=== PATIENT | male | born 1985 | race Two or more races ===

== ENCOUNTER 2019-01-31 10:14 | Emergency (ER) | payer SELFPAY ==
--- NOTE | 2019-01-31 11:08 | EDM.PDOC ---
ED HPI GENERAL MEDICAL PROBLEM - General Chief Complaint: Gastrointestinal Problem Stated Complaint: ABDOMINAL PAIN Time Seen by Provider: 01/31/19 10:39 Source of Information: Reports: Patient, RN Notes Reviewed - History of Present Illness INITIAL COMMENTS - FREE TEXT/NARRATIVE: 33-year-old male comes in with concern about upper mid chest discomfort he has had off and on for about a month and also left lower abdominal discomfort also off-and-on for about a month. States this all has been quite mild no nausea vomiting or change in appetite. He has had some mild intermittent constipation. He had an episode of rectal bleeding a month or 2 ago that stopped, no further bleeding and that also is of concern to him. His father at about age 55 of pancreatic cancer and that is his main worry, that he might have cancer. He did start omeprazole today and took his first dose just a few hours ago. No significant pain at this time. Left Abdominal Pain Score (Numeric/FACES): 1 - Related Data Allergies Allergy/AdvReac Type Severity Reaction Status Date / Time No Known Allergies Allergy Verified 01/31/19 10:20 Home Meds: Home Meds . [No Known Home Meds] 01/31/19 [History] Past Medical History - Past Health History Medical/Surgical History: Denies Medical/Surgical History Social & Family History - Tobacco Use Smoking Status *Q: Never Smoker Second Hand Smoke Exposure: No - Caffeine Use Caffeine Use: Reports: Energy Drinks, Soda - Alcohol Use Days Per Week of Alcohol Use: 1 Number of Drinks Per Day: 1 Total Drinks Per Week: 1 - Recreational Drug Use Recreational Drug Use: No ED ROS GENERAL - Review of Systems Review Of Systems: See Below Constitutional: Denies: Fever, Chills, Diaphoresis HEENT: Reports: No Symptoms Respiratory: Denies: Shortness of Breath, Pleuritic Chest Pain Cardiovascular: Denies: Chest Pain GI/Abdominal: Reports: Abdominal Pain, Constipation. Denies: Diarrhea, Nausea, Vomiting Musculoskeletal: Denies: Back Pain Skin: Reports: No Symptoms Neurological: Reports: No Symptoms ED EXAM, GI/ABD - Physical Exam Exam: See Below General Appearance: Alert, Anxious Eyes: Bilateral: Normal Appearance Throat/Mouth: Normal Inspection Head: Atraumatic Neck: Supple Respiratory/Chest: No Respiratory Distress, Lungs Clear, Normal Breath Sounds Cardiovascular: Regular Rate, Rhythm GI/Abdominal Exam: Soft, Non-Tender. No: Guarding, Rebound Back Exam: No: CVA Tenderness (L), CVA Tenderness (R) Extremities: Normal Inspection Neurological: Alert, Oriented, No Motor/Sensory Deficits Skin Exam: Warm, Dry, Normal Color Course - Vital Signs Last Recorded V/S: Last Vital Signs Temp 98.0 F 01/31/19 10:18 Pulse 57 L 01/31/19 10:18 Resp 14 01/31/19 10:18 BP 137/86 01/31/19 10:18 Pulse Ox 100 01/31/19 10:18 - Re-Assessments/Exams Free Text/Narrative Re-Assessment/Exam: 01/31/19 11:15 Labs, imaging not clinically recommended at this time. Disharge instructions as documented. Departure - Departure Time of Disposition: 11:06 Disposition: Home, Self-Care 01 Condition: Fair Clinical Impression: Abdominal pain, GERD (gastroesophageal reflux disease) - Discharge Information Instructions: Abdominal Pain, Adult, [id number], Gastroesophageal Reflux Disease, Adult, [id number] Referrals: PCP,None [Primary Care Provider] - Forms: ED Department Discharge Additional Instructions: Continue the omeprazole 20 mg daily for 10-14 days. That should help your symptoms of acid reflux. Try eat a good healthy balanced diet . Either stop your energy drink useage or not more than 1 per day. As discussed the caffeine content of an energy drink is extremely high, about the same as 5 cups of coffee. See a clinic provider in 10-14 days at [facility] or at our [facility]. Call for appointment. Sepsis Event Note - Evaluation Sepsis Screening Result: No Definite Risk - Focused Exam Vital Signs: Vital Signs Temp Pulse Resp BP Pulse Ox 01/31/19 10:18 98.0 F 57 L 14 137/86 100 Date Exam was Performed: 01/31/19 Time Exam was Performed: 11:11
== END 2019-01-31 11:17 | disposition home or self-care (01) ==
LOC: JD.ED 10:14
DX: K21.9 Gastro-esophageal reflux disease without esophagitis (principal)
CPT/HCPCS: 99282; 99284